=== PATIENT | male | born 1945 | race Caucasian/White ===

== ENCOUNTER → 2016-08-21 | Outpatient (CLI) | payer MEDICARE | END | disposition home or self-care (01) | LOC: CFH 12:09 | PROVIDERS: ATTEND Orthopaedic Surgery | DX: M75.121 Complete rotator cuff tear or rupture of right shoulder, not specified as traumatic (principal); M19.011 Primary osteoarthritis, right shoulder ==

== ENCOUNTER 2016-12-26 22:00 | Inpatient (IN) | payer MEDICARE ==
[~2016-12-26] VITALS: Ht 157.5 cm; Wt 100.2 kg
[2016-12-26] MEDS ORDERED: HYDROmorphone 1 MG/ML, 1ML ONE (22:25)
[2016-12-26] MEDS ORDERED: ONDANSETRON ODT 4 MG ONE (22:25)
[2016-12-26] MEDS ORDERED: HYDROmorphone 1 MG/ML, 1ML IM ONE (22:30)
[2016-12-26] MEDS ORDERED: ONDANSETRON ODT 4 MG PO ONE (22:30)
[2016-12-26 22:39] LABS: HEMATOCRIT 45.4 % (39.2-51.8); HEMOGLOBIN 15.1 g/dL (13.7-18.0); WHITE BLOOD COUNT 23.2 x10^3/uL (3.4-10)
[2016-12-26 22:51] LABS: ASPARTATE AMINO TRANSFERASE 16 U/L (15-37); BLOOD UREA NITROGEN 14 mg/dL (7-18)
[2016-12-26] MEDS ORDERED: POTASSIUM CHLORIDE 20 MEQ TAB.ER.PRT PO ONE (23:00)
[2016-12-26] MEDS ORDERED: SODIUM CHLORIDE 0.9% 1,000ML IVBOLUS ONE (23:00)
[2016-12-26] MEDS ORDERED: DIAZEPAM 5 MG/ML, 10ML VIAL IV ONE (23:00)
[2016-12-26] MEDS ORDERED: ZIPRASIDONE 20 MG INJ IM ONE (23:30)
[2016-12-27] MEDS ORDERED: CEFTRIAXONE PMX 1GM/50ML 50 ML IV SCH
[2016-12-27] MEDS ORDERED: ACETAMINOPHEN 325 MG TABLET PO PRN
[2016-12-27] MEDS ORDERED: hydrALAzine 20 MG/ML, 1ML IVPush PRN
[2016-12-27] MEDS ORDERED: ONDANSETRON 2MG/ML, 2ML IVPush PRN
[2016-12-27] MEDS ORDERED: HALOPERIDOL 1 MG TABLET PO PRN
[2016-12-27] MEDS ORDERED: CEFTRIAXONE PMX 1GM/50ML 50 ML ONE (00:03)
[2016-12-27] MEDS ORDERED: PRED10TA PO (00:30)
[2016-12-27] MEDS ORDERED: FLUT1DIS3 INH (00:30)
[2016-12-27] MEDS ORDERED: TEST200V21 INJ (00:30)
[2016-12-27] MEDS ORDERED: TAMS-11 PO (00:30)
[2016-12-27] MEDS ORDERED: POTA20TA14 PO (00:30)
[2016-12-27] MEDS ORDERED: FOLI-17 PO (00:30)
[2016-12-27] MEDS ORDERED: ERGO500017 PO (00:30)
[2016-12-27] MEDS ORDERED: BUPR150T73 PO (00:30)
[2016-12-27] MEDS ORDERED: ESZO3TAB28 PO (00:30)
[2016-12-27] MEDS ORDERED: DOXA2TAB PO (00:30)
[2016-12-27] MEDS ORDERED: DULO20CA45 PO (00:30)
[2016-12-27] MEDS ORDERED: ESOM40CA PO (00:30)
[2016-12-27] MEDS ORDERED: BECL8.7A7 INH (00:30)
[2016-12-27] MEDS ORDERED: CYCL-259 PO (00:30)
[2016-12-27] MEDS ORDERED: HYDR25TA6 PO (00:30)
[2016-12-27] MEDS ORDERED: LIFI1DRO PO (00:30)
[2016-12-27] MEDS ORDERED: CHOL4PAC2 PO (00:30)
[2016-12-27] MEDS ORDERED: DIAZ2TAB3 PO (00:30)
[2016-12-27] MEDS ORDERED: OXYC-302 PO (00:30)
[2016-12-27] MEDS ORDERED: CHLO25TA PO (00:30)
[2016-12-27] MEDS ORDERED: POTASSIUM CHLORIDE 40 MEQ in SODIUM CHLORIDE 0.9% 500 ML IV ONE (01:00)
[2016-12-27] MEDS ORDERED: CEFTRIAXONE PMX 1GM/50ML 50 ML IV ONE (01:00)
[2016-12-27 01:01] VITALS: BP 113/75
[2016-12-27] MEDS: HYDROmorphone 2 MG/ML, 1ML IVPush PRN ×6 (01:52→11:05)
[2016-12-27] MEDS: SODIUM CHLORIDE 0.9% 1,000 ML IV SCH ×2 (01:52→15:09)
[2016-12-27 02:12] VITALS: BP 113/75
[2016-12-27 03:19] LABS: BLOOD UREA NITROGEN 15 mg/dL (7-18)
[2016-12-27 03:21] LABS: RAPID INFLUENZA A Negative (Negative); RAPID INFLUENZA B Negative (Negative)
[2016-12-27 03:22] LABS: HEMATOCRIT 40.8 % (39.2-51.8); WHITE BLOOD COUNT 22.5 x10^3/uL (3.4-10)
[2016-12-27] MEDS: DIAZEPAM 5 MG/ML, 10ML VIAL IV PRN ×2 (05:32→10:01)
[2016-12-27 07:17] VITALS: BP 109/56
[2016-12-27] MEDS: FAMOTIDINE 20 MG/2 ML IVPush SCH ×2 (08:00→22:51)
[2016-12-27] MEDS ORDERED: MAGNESIUM SULFATE PMX 4GM/100M 100 ML IV ONE (08:30)
[2016-12-27 08:50] LABS: PATH.CAST-FLAG NOT PRESENT; SPERM-FLAG NOT PRESENT; SRC-FLAG NOT PRESENT; XTAL-FLAG NOT PRESENT; YLC-FLAG NOT PRESENT
[2016-12-27] MEDS ORDERED: PHARMACOKINETIC MONITORING MC PRN (10:30)
[2016-12-27] MEDS ORDERED: PHARMACOKINETIC CONSULTATION MC ONE (10:30)
[2016-12-27] MEDS ORDERED: VANCOMYCIN PER PHARMACY MC PRN (10:30)
[2016-12-27] MEDS ORDERED: CEFTRIAXONE PMX 2GM/50ML 50 ML IV SCH (10:30)
[2016-12-27] MEDS: PIPERACILLIN/TAZO/PMX 4.5GM 100 ML IV SCH ×3 (11:18→22:51)
[2016-12-27] MEDS ORDERED: OMNIPAQUE 350 MG/ML, 100ML BOTTLE ONE (11:57)
[2016-12-27] MEDS ORDERED: OXYcodone/APAP 5/325MG TABLET PO PRN (12:30)
[2016-12-27] MEDS ORDERED: ERGOCALCIFEROL 50,000 UNIT CAPSULE PO SCH (12:30)
[2016-12-27] MEDS: BUPROPION SR 150 MG TABLET PO SCH (12:30)
[2016-12-27] MEDS ORDERED: CHLORTHALIDONE 25 MG TABLET PO SCH (12:30)
[2016-12-27 12:48] VITALS: BP 100/61
[2016-12-27 12:52] LABS: ABG COLLECTION SITE RIGHT RADIAL; COLLATERAL CIRCULATION TESTING NORMAL
[2016-12-27] MEDS ORDERED: methylPREDNISolone SOD SUCC 125 MG/2 ML IVPush SCH (13:00)
[2016-12-27 13:08] LABS: IS PT STATUS REG ER OR PRE ER? NO
[2016-12-27] MEDS ORDERED: NALOXONE 0.4 MG/ML, 1ML ONE (13:34)
[2016-12-27] MEDS ORDERED: FLUMAZENIL 0.1 MG/1 ML, 5ML ONE (13:34)
[2016-12-27] MEDS ORDERED: ALBUTEROL SULFATE 2.5 MG/3 ML ONE (14:11)
[2016-12-27] MEDS: ALBUTEROL SULFATE 2.5 MG/3 ML NPPB SCH ×4 (14:15→20:48)
[2016-12-27] MEDS ORDERED: NOREPINEPHRINE 4 MG in SODIUM CHLORIDE 0.9% 246 ML IV PRN (14:30)
[2016-12-27] MEDS ORDERED: SODIUM CHLORIDE 0.9% 1,000ML IVBOLUS ONE ×2 (14:30)
[2016-12-27] MEDS: VANCOMYCIN 1,600 MG in SODIUM CHLORIDE 0.9% 250 ML IV SCH (14:54)
[2016-12-27 14:59] LABS: HEMATOCRIT 36.2 % (39.2-51.8); HEMOGLOBIN 12.2 g/dL (13.7-18.0); WHITE BLOOD COUNT 19.1 x10^3/uL (3.4-10)
[2016-12-27] MEDS ORDERED: KETOROLAC 30 MG/1 ML IM PRN (15:00)
[2016-12-27] MEDS: TAMSULOSIN 0.4 MG CAP.ER.24H PO SCH (15:06)
[2016-12-27] MEDS: MICAFUNGIN 100 MG in SODIUM CHLORIDE 0.9% 100 ML IV SCH (15:06)
[2016-12-27] MEDS: PANTOPROZOLE 40MG TABLET PO SCH (15:06)
[2016-12-27 15:09] LABS: ASPARTATE AMINO TRANSFERASE 7 U/L (15-37); BLOOD UREA NITROGEN 19 mg/dL (7-18)
[2016-12-27] MEDS: HYDROCORTISONE 100 MG INJ. IVPush SCH (15:09)
[2016-12-27] MEDS: CYCLOBENZAPRINE 10 MG TABLET PO SCH ×2 (15:10→22:51)
[2016-12-27] MEDS: POTASSIUM CHLORIDE 20 MEQ TAB.ER.PRT PO SCH (15:11)
[2016-12-27 15:17] LABS: IS PT STATUS REG ER OR PRE ER? NO
[2016-12-27] MEDS: KETOROLAC 30 MG/1 ML IV PRN ×2 (15:22→23:15)
[2016-12-27 15:24] LABS: DIFF TOTAL CELLS COUNTED 100 CELL DIFF
[2016-12-27 15:36] LABS: VERIFY COUNTS? YES
[2016-12-27] MEDS ORDERED: DOXAZOSIN 2MG TABLET PO SCH (16:00)
[2016-12-27 20:21] LABS: IS PT STATUS REG ER OR PRE ER? NO
[2016-12-27] MEDS ORDERED: POTASSIUM CHLORIDE 20 MEQ TAB.ER.PRT PO SCH (21:00)
[2016-12-27] MEDS ORDERED: DIAZEPAM 2 MG TABLET PO SCH (21:00)
[2016-12-27] MEDS: LIFITEGRAST OP SCH (21:00)
[2016-12-27 22:06] VITALS: BP 124/47
[2016-12-28] MEDS: HYDROCORTISONE 100 MG INJ. IVPush SCH ×4 (00:18→22:57)
[2016-12-28] MEDS ORDERED: CEFTRIAXONE PMX 1GM/50ML 50 ML IV SCH (00:30)
[2016-12-28] MEDS: ALBUTEROL SULFATE 2.5 MG/3 ML NPPB SCH ×3 (01:17→10:36)
[2016-12-28 02:40] LABS: HEMATOCRIT 41.2 % (39.2-51.8); HEMOGLOBIN 13.9 g/dL (13.7-18.0); WHITE BLOOD COUNT 19.4 x10^3/uL (3.4-10)
[2016-12-28 03:02] LABS: IS PT STATUS REG ER OR PRE ER? NO
[2016-12-28 03:03] LABS: DIFF TOTAL CELLS COUNTED 100 CELL DIFF
[2016-12-28 03:07] LABS: VERIFY COUNTS? YES
[2016-12-28 03:08] LABS: POLYCHROMASIA 1+
[2016-12-28 03:18] LABS: ASPARTATE AMINO TRANSFERASE 15 U/L (15-37); BLOOD UREA NITROGEN 25 mg/dL (7-18)
[2016-12-28] MEDS: SODIUM CHLORIDE 0.9% 1,000 ML IV SCH ×2 (03:18→14:29)
[2016-12-28] MEDS: PIPERACILLIN/TAZO/PMX 4.5GM 100 ML IV SCH ×4 (04:23→22:56)
[2016-12-28 05:00] VITALS: BP 102/72
[2016-12-28] MEDS: KETOROLAC 30 MG/1 ML IV PRN ×3 (06:28→22:57)
[2016-12-28] MEDS: FOLIC ACID 1 MG TABLET PO SCH (08:46)
[2016-12-28] MEDS: CYCLOBENZAPRINE 10 MG TABLET PO SCH ×3 (08:46→20:56)
[2016-12-28] MEDS: PANTOPROZOLE 40MG TABLET PO SCH (08:46)
[2016-12-28] MEDS: POTASSIUM CHLORIDE 20 MEQ TAB.ER.PRT PO SCH (08:46)
[2016-12-28] MEDS: LIFITEGRAST OP SCH ×2 (08:46→20:56)
[2016-12-28] MEDS: BUPROPION SR 150 MG TABLET PO SCH (08:47)
[2016-12-28] MEDS: DULOXETINE 20 MG CAPSULE.DR PO SCH (08:47)
[2016-12-28] MEDS: TAMSULOSIN 0.4 MG CAP.ER.24H PO SCH (08:47)
[2016-12-28] MEDS ORDERED: HYDROCHLOROTHIAZIDE 25 MG TABLET PO SCH (09:00)
[2016-12-28] MEDS ORDERED: ALBUTEROL SULFATE 2.5 MG/3 ML NPPB PRN (11:00)
[2016-12-28] MEDS: FLUTICASONE FUROATE 200MCG/INH INH SCH (11:08)
[2016-12-28] MEDS ORDERED: METHYLNALTREXONE 12 MG/0.6 ML SQ ONE (11:30)
[2016-12-28] MEDS ORDERED: POLYETHYLENE GLYCOL 17 GM PACKET PO PRN (11:30)
[2016-12-28] MEDS: VANCOMYCIN 1,600 MG in SODIUM CHLORIDE 0.9% 250 ML IV SCH (11:51)
[2016-12-28] MEDS: MICAFUNGIN 100 MG in SODIUM CHLORIDE 0.9% 100 ML IV SCH (15:32)
[2016-12-28] MEDS: FAMOTIDINE 20 MG/2 ML IVPush SCH (20:56)
[2016-12-29] MEDS: SODIUM CHLORIDE 0.9% 1,000 ML IV SCH (00:42)
[2016-12-29] MEDS ORDERED: VANCOMYCIN 1,800 MG in SODIUM CHLORIDE 0.9% 250 ML IV SCH ×3 (03:00→23:00)
[2016-12-29 04:37] LABS: HEMATOCRIT 35.5 % (39.2-51.8); HEMOGLOBIN 12.1 g/dL (13.7-18.0); WHITE BLOOD COUNT 18.5 x10^3/uL (3.4-10)
[2016-12-29 04:40] LABS: BLOOD UREA NITROGEN 34 mg/dL (7-18)
[2016-12-29] MEDS: KETOROLAC 30 MG/1 ML IV PRN ×3 (04:42→23:00)
[2016-12-29] MEDS: PIPERACILLIN/TAZO/PMX 4.5GM 100 ML IV SCH ×4 (04:42→22:12)
[2016-12-29 04:51] VITALS: BP 96/64
[2016-12-29 04:58] LABS: DIFF TOTAL CELLS COUNTED 100 CELL DIFF
[2016-12-29 05:00] LABS: VERIFY COUNTS? YES
[2016-12-29] MEDS: HYDROCORTISONE 100 MG INJ. IVPush SCH ×3 (06:20→22:56)
[2016-12-29] MEDS: LIFITEGRAST OP SCH ×2 (09:00→21:00)
[2016-12-29] MEDS ORDERED: ARTIFICIAL TEARS OPHTH SOLN 15ML EACHEYE PRN (09:00)
[2016-12-29] MEDS: DOCUSATE 100 MG CAPSULE PO SCH (09:00)
[2016-12-29] MEDS: FLUTICASONE FUROATE 200MCG/INH INH SCH (10:03)
[2016-12-29] MEDS: FOLIC ACID 1 MG TABLET PO SCH (10:04)
[2016-12-29] MEDS: TAMSULOSIN 0.4 MG CAP.ER.24H PO SCH (10:04)
[2016-12-29] MEDS: CYCLOBENZAPRINE 10 MG TABLET PO SCH ×3 (10:04→22:13)
[2016-12-29] MEDS: BUPROPION SR 150 MG TABLET PO SCH (10:04)
[2016-12-29] MEDS: DULOXETINE 20 MG CAPSULE.DR PO SCH (10:04)
[2016-12-29 14:01] VITALS: BP 93/61
[2016-12-29] MEDS: MICAFUNGIN 100 MG in SODIUM CHLORIDE 0.9% 100 ML IV SCH (16:27)
[2016-12-29] MEDS: HYDROcodone/APAP 5/325 TABLET PO PRN ×2 (18:16→22:16)
[2016-12-29 19:31] VITALS: BP 98/55
[2016-12-29] MEDS: FAMOTIDINE 20 MG/2 ML IVPush SCH (22:17)
[2016-12-30 02:00] VITALS: BP 97/64
[2016-12-30] MEDS: PIPERACILLIN/TAZO/PMX 4.5GM 100 ML IV SCH ×4 (04:17→22:11)
[2016-12-30 05:43] LABS: HEMATOCRIT 31.5 % (39.2-51.8); HEMOGLOBIN 10.6 g/dL (13.7-18.0); WHITE BLOOD COUNT 19.3 x10^3/uL (3.4-10)
[2016-12-30 06:06] LABS: ASPARTATE AMINO TRANSFERASE 15 U/L (15-37); BLOOD UREA NITROGEN 38 mg/dL (7-18)
[2016-12-30] MEDS: HYDROCORTISONE 100 MG INJ. IVPush SCH ×3 (06:48→22:11)
[2016-12-30 07:35] VITALS: BP 92/58
[2016-12-30] MEDS: DOCUSATE 100 MG CAPSULE PO SCH (09:00)
[2016-12-30] MEDS: BUPROPION SR 150 MG TABLET PO SCH (09:00)
[2016-12-30] MEDS: FOLIC ACID 1 MG TABLET PO SCH (10:12)
[2016-12-30] MEDS: CYCLOBENZAPRINE 10 MG TABLET PO SCH ×3 (10:12→21:38)
[2016-12-30] MEDS: DULOXETINE 20 MG CAPSULE.DR PO SCH (10:12)
[2016-12-30] MEDS: TAMSULOSIN 0.4 MG CAP.ER.24H PO SCH (10:12)
[2016-12-30] MEDS: FLUTICASONE FUROATE 200MCG/INH INH SCH (10:14)
[2016-12-30] MEDS: LIFITEGRAST OP SCH ×2 (10:17→20:04)
[2016-12-30] MEDS: HYDROcodone/APAP 5/325 TABLET PO PRN ×2 (10:32→21:38)
[2016-12-30 13:19] VITALS: BP 133/89
[2016-12-30 15:09] VITALS: BP 100/60
[2016-12-30] MEDS: MICAFUNGIN 100 MG in SODIUM CHLORIDE 0.9% 100 ML IV SCH (17:08)
[2016-12-30 19:47] VITALS: BP 104/68
[2016-12-30] MEDS: FAMOTIDINE 20 MG/2 ML IVPush SCH (21:38)
[2016-12-31 02:50] VITALS: BP 120/77
[2016-12-31] MEDS: PIPERACILLIN/TAZO/PMX 4.5GM 100 ML IV SCH ×4 (04:21→22:08)
[2016-12-31 05:18] LABS: HEMATOCRIT 31.5 % (39.2-51.8); HEMOGLOBIN 10.7 g/dL (13.7-18.0); WHITE BLOOD COUNT 14.8 x10^3/uL (3.4-10)
[2016-12-31 05:29] LABS: ASPARTATE AMINO TRANSFERASE 18 U/L (15-37); BLOOD UREA NITROGEN 33 mg/dL (7-18)
[2016-12-31 07:35] VITALS: BP 125/82
[2016-12-31] MEDS: HYDROCORTISONE 100 MG INJ. IVPush SCH (08:09)
[2016-12-31] MEDS: DOCUSATE 100 MG CAPSULE PO SCH (08:10)
[2016-12-31] MEDS: HYDROcodone/APAP 5/325 TABLET PO PRN ×2 (08:10→16:27)
[2016-12-31] MEDS: LIFITEGRAST OP SCH ×2 (08:10→20:08)
[2016-12-31] MEDS: FLUTICASONE FUROATE 200MCG/INH INH SCH (08:10)
[2016-12-31] MEDS: TAMSULOSIN 0.4 MG CAP.ER.24H PO SCH (08:11)
[2016-12-31] MEDS: CYCLOBENZAPRINE 10 MG TABLET PO SCH ×3 (08:11→20:28)
[2016-12-31] MEDS: DULOXETINE 20 MG CAPSULE.DR PO SCH (08:11)
[2016-12-31] MEDS: FOLIC ACID 1 MG TABLET PO SCH (08:11)
[2016-12-31] MEDS: BUPROPION SR 150 MG TABLET PO SCH (08:11)
[2016-12-31] MEDS ORDERED: CHOLESTYRAMINE LIGHT 4GM PACKET PO PRN (14:30)
[2016-12-31] MEDS ORDERED: POTASSIUM CHLORIDE 20 MEQ TAB.ER.PRT PO ONE (14:30)
[2016-12-31 16:10] VITALS: BP 113/70
[2016-12-31] MEDS: MICAFUNGIN 100 MG in SODIUM CHLORIDE 0.9% 100 ML IV SCH (17:19)
[2016-12-31] MEDS ORDERED: HYDROCORTISONE 100 MG INJ. IVPush SCH (19:00)
[2016-12-31 19:16] VITALS: BP 133/76
[2016-12-31] MEDS: FAMOTIDINE 20 MG/2 ML IVPush SCH (22:08)
[2017-01-01 02:36] VITALS: BP 143/82
[2017-01-01] MEDS: HYDROcodone/APAP 5/325 TABLET PO PRN (04:01)
[2017-01-01] MEDS: PIPERACILLIN/TAZO/PMX 4.5GM 100 ML IV SCH ×3 (04:01→16:30)
[2017-01-01 04:59] LABS: HEMATOCRIT 33.2 % (39.2-51.8); HEMOGLOBIN 11.1 g/dL (13.7-18.0)
[2017-01-01 05:14] LABS: BLOOD UREA NITROGEN 29 mg/dL (7-18)
[2017-01-01 05:43] LABS: DIFF TOTAL CELLS COUNTED 100 CELL DIFF; VERIFY COUNTS? YES
[2017-01-01 05:44] LABS: POLYCHROMASIA 1+
[2017-01-01 05:45] LABS: ANISOCYTOSIS 1+
[2017-01-01 07:29] VITALS: BP 145/87
[2017-01-01] MEDS ORDERED: REGADENOSON 0.4 MG/5 ML SYRINGE ONE (07:56)
[2017-01-01] MEDS ORDERED: POTASSIUM CHLORIDE 20 MEQ TAB.ER.PRT PO ONE (08:00)
[2017-01-01] MEDS: LIFITEGRAST OP SCH (09:00)
[2017-01-01] MEDS: DOCUSATE 100 MG CAPSULE PO SCH (09:54)
[2017-01-01] MEDS: FLUTICASONE FUROATE 200MCG/INH INH SCH (10:15)
[2017-01-01] MEDS: TAMSULOSIN 0.4 MG CAP.ER.24H PO SCH (10:19)
[2017-01-01] MEDS: FOLIC ACID 1 MG TABLET PO SCH (10:20)
[2017-01-01] MEDS: CYCLOBENZAPRINE 10 MG TABLET PO SCH ×2 (10:21→16:02)
[2017-01-01] MEDS: DULOXETINE 20 MG CAPSULE.DR PO SCH (10:22)
[2017-01-01] MEDS: BUPROPION SR 150 MG TABLET PO SCH (10:22)
[2017-01-01 13:14] VITALS: BP 113/68
[2017-01-01] MEDS: MICAFUNGIN 100 MG in SODIUM CHLORIDE 0.9% 100 ML IV SCH (16:40)
== END 2017-01-01 17:02 | disposition home health service (06) | DRG 871 ==
LOC: ED 22:17 → EDIP 23:55 → 3NE 12-27 00:41 → CCU 12-27 13:09 → 4NOR 12-29 11:30 → 3NE 12-30 14:57 → DCLOUNGE 01-01 16:50
PROVIDERS: ADMIT Family Medicine; ATTEND Family Medicine
PROC: 0T9B70Z Drainage of Bladder with Drainage Device, Via Natural or Artificial Opening (ICD-10-PCS; principal; 2016-12-28)
DX: A41.9 Sepsis, unspecified organism (principal); E43 Unspecified severe protein-calorie malnutrition; J96.01 Acute respiratory failure with hypoxia; N17.0 Acute kidney failure with tubular necrosis; G92 Toxic encephalopathy; K50.90 Crohn's disease, unspecified, without complications; E83.42 Hypomagnesemia; M32.9 Systemic lupus erythematosus, unspecified; J98.11 Atelectasis; E87.1 Hypo-osmolality and hyponatremia; Z68.41 Body mass index [BMI] 40.0-44.9, adult; Z66 Do not resuscitate; M19.90 Unspecified osteoarthritis, unspecified site; E87.6 Hypokalemia; I10 Essential (primary) hypertension; I34.0 Nonrheumatic mitral (valve) insufficiency; M79.7 Fibromyalgia; N40.1 Benign prostatic hyperplasia with lower urinary tract symptoms; R33.8 Other retention of urine; Z79.52 Long term (current) use of systemic steroids; Z79.899 Other long term (current) drug therapy; Z82.49 Family history of ischemic heart disease and other diseases of the circulatory system
CPT/HCPCS: 36415; 36600; 71010; 71260; 74177; 78452; 80048; 80053; 80202; 81001; 82533; 82550; 82803; 83605; 83735; 84100; 84145; 84443; 84484; 85025; 85651; 86140; 86790; 87040; 87046; 87070; 87081; 87086; 87205; 87324; 87328; 87329; 87400; 93005; 93017; 93306; 94640; 96361; 96372; 96374; J0696; J1170; J1885; J2248; J2543; J2785; J3360; J3370; J3480; J3486; J7613; Q0162; Q9967; A9502; C9898; J1720; J3475; J7030; J7040; J7050; J7512; S0028

== ENCOUNTER → 2017-07-08 | Outpatient (CLI) | payer MEDICARE ==
[~2017-07-08] MED LIST: BECL8.7A7 INH; BUPR150T73 PO; CHLO25TA PO; CHOL4PAC2 PO; CYCL-259 PO; DIAZ2TAB3 PO; DOXA2TAB PO; DULO20CA45 PO; ERGO500017 PO; ESOM40CA PO; ESZO3TAB28 PO; FLUT1DIS3 INH; FOLI-17 PO; HYDR25TA6 PO; LIFI1DRO PO; OXYC-302 PO; POTA20TA14 PO; PRED10TA PO; TAMS-11 PO; TEST200V21 INJ
== END | disposition home or self-care (01) ==
LOC: CARD 12:37
PROVIDERS: ATTEND Internal Medicine
DX: R05 Cough (principal); M79.7 Fibromyalgia; I10 Essential (primary) hypertension
CPT/HCPCS: 94060; 94726; 94729

== ENCOUNTER → 2020-05-01 | Outpatient (CLI) | payer MEDICARE ==
[~2020-05-01] MED LIST changes: -CYCL-259 PO; +CYCL10TA2 PO; -FOLI-17 PO; +FOLI1TAB32 PO; -OXYC-302 PO; +OXYC1TAB14 PO
[2020-05-01 11:16] LABS: BASOPHILS % (AUTO) 1 % (0-1); EOSINOPHILS % (AUTO) 5 % (1-7); LYMPHOCYTES % (AUTO) 19 % (22-44); MEAN CORPUSCULAR HEMOGLOBIN 30.3 pg (27.5-34.5); MEAN CORPUSCULAR HGB CONC 33.6 g/dL (33.2-36.2); MEAN PLATELET VOLUME 7.5 fL (7.4-10.4); MONOCYTES % (AUTO) 11 % (2-9); NEUTROPHILS % (AUTO) 65 % (42-75); PLATELET COUNT 258 x10^3/uL (130-400); RED BLOOD COUNT 4.99 x10^6/uL (4.38-5.82); RED CELL DISTRIBUTION WIDTH 14.8 % (9.4-14.8)
[2020-05-01 11:26] LABS: ANION GAP 4 mmol/L (5-15); CALCIUM 9.1 mg/dL (8.5-10.1); CHLORIDE 110 mmol/L (98-107)
[2020-05-01 11:27] LABS: CREATININE 1.36 mg/dL (0.7-1.3)
[2020-05-01 11:50] LABS: MD SCAN
== END | disposition home or self-care (01) ==
LOC: LAB 10:47
PROVIDERS: ATTEND Internal Medicine
DX: I10 Essential (primary) hypertension (principal)
CPT/HCPCS: 36415; 80048; 85025

== ENCOUNTER → 2020-08-16 | Outpatient (CLI) | payer MEDICARE | END | disposition home or self-care (01) | LOC: RAD 09:09 | PROVIDERS: ATTEND Pain Medicine Interventional Pain Medicine | DX: M47.27 Other spondylosis with radiculopathy, lumbosacral region (principal); M51.16 Intervertebral disc disorders with radiculopathy, lumbar region; M48.07 Spinal stenosis, lumbosacral region | CPT/HCPCS: 72148 ==

== ENCOUNTER → 2020-08-31 | Outpatient (CLI) | payer MEDICARE | END | disposition home or self-care (01) | LOC: CFH 11:19 | PROVIDERS: ATTEND Pain Medicine Interventional Pain Medicine | DX: M54.16 Radiculopathy, lumbar region (principal); M48.061 Spinal stenosis, lumbar region without neurogenic claudication | CPT/HCPCS: 72114 ==

== ENCOUNTER 2020-10-04 10:32 | Outpatient (CLI) | payer MEDICARE ==
[2020-10-04 11:05] LABS: BASOPHILS % (AUTO) 1 % (0-1); EOSINOPHILS % (AUTO) 4 % (1-7); LYMPHOCYTES % (AUTO) 17 % (22-44); MEAN CORPUSCULAR HEMOGLOBIN 29.2 pg (27.5-34.5); MEAN CORPUSCULAR HGB CONC 33.1 g/dL (33.2-36.2); MEAN PLATELET VOLUME 7.8 fL (7.4-10.4); MONOCYTES % (AUTO) 11 % (2-9); NEUTROPHILS % (AUTO) 68 % (42-75); PLATELET COUNT 221 x10^3/uL (130-400); RED BLOOD COUNT 5.29 x10^6/uL (4.38-5.82); RED CELL DISTRIBUTION WIDTH 15.5 % (9.4-14.8)
[2020-10-04 11:13] LABS: ALANINE AMINOTRANSFERASE 32 U/L (12-78); ALBUMIN 3.5 g/dL (3.4-5.0); ANION GAP 7 mmol/L (5-15); CALCIUM 8.6 mg/dL (8.5-10.1); CHLORIDE 109 mmol/L (98-107); CHOLESTEROL, TOTAL 219 mg/dL (140-239); CREATININE 1.24 mg/dL (0.7-1.3)
[2020-10-04 11:17] LABS: ALKALINE PHOSPHATASE 67 U/L (45-117); BILIRUBIN,TOTAL 0.5 mg/dL (0.2-1.0); CHOL/HDL RATIO 3.8; HDL CHOL % 26 % (26-37); HDL CHOLESTEROL (DIRECT) 58 mg/dL (40-60); LDL CHOLESTEROL,CALCULATED 91 mg/dL (54-169); LDL/HDL RATIO 1.6 (0.5-3.0); TOTAL PROTEIN 6.8 g/dL (6.4-8.2); TRIGLYCERIDES 349 mg/dL (50-200); VLDL CHOLESTEROL 70 mg/dL (0-25)
== END 2020-10-04 23:59 | disposition home or self-care (01) ==
LOC: LAB 10:32
PROVIDERS: ATTEND Internal Medicine
DX: I10 Essential (primary) hypertension (principal); E78.5 Hyperlipidemia, unspecified
CPT/HCPCS: 36415; 80053; 80061; 85025